=== PATIENT | female | born 2000 | race Caucasian/White ===

== ENCOUNTER 2024-11-15 11:51 | Outpatient (CLI) | payer OTHER, SELFPAY ==
[2024-11-15 15:22] LABS: Bacterial Vaginosis* Negative (Negative); Candida glab/krus NOT DETECTED (No Detected)
[2024-11-15 15:56] LABS: Chlamydia DNA Amplified* NOT DETECTED (No Detected); GC DNA Amplified* NOT DETECTED (No Detected)
== END 2024-11-15 11:52 | disposition home or self-care (01) ==
PROVIDERS: Visit Provider Midwife
DX: N89.8 Other specified noninflammatory disorders of vagina (principal); Z11.3 Encounter for screening for infections with a predominantly sexual mode of transmission
CPT/HCPCS: 81513; 87481; 87491; 87591; 87661